=== PATIENT | female | born 1970 | race Caucasian/White ===

== ENCOUNTER 2017-05-18 17:05 | Emergency (ER) | payer BC ==
[2017-05-18 17:48] VITALS: BP 106/59
--- NOTE | 2017-05-18 17:59 | EDM.PDOC ---
ED HPI GENERAL MEDICAL PROBLEM - General Chief Complaint: Skin Complaint Stated Complaint: R NIPPLE PAIN Time Seen by Provider: 05/18/17 17:51 Source of Information: Reports: Patient History Limitations: Reports: No Limitations - History of Present Illness INITIAL COMMENTS - FREE TEXT/NARRATIVE: HISTORY AND PHYSICAL: []46-year-old female presenting with breast pain History of Present Illness: []Patient was seen in the walk-in clinic and treated as mastitis given Zithromax and tramadol Continues to have increased pain Does not want to take tramadol makes her feel "drunk" Patient states that her aunt had breast cancer at 66 years of age had undergone 3 rounds of chemotherapy and then stopped any treatments Review of Systems: As per history of present illness and below otherwise all systems reviewed and negative. Past medical history: As per history of present illness and as reviewed below otherwise noncontributory. Surgical history: As per history of present illness and as reviewed below otherwise noncontributory. Social history: No reported history of drug or alcohol abuse. Family history: As per history of present illness and as reviewed below otherwise noncontributory. Physical exam: Alert and oriented female with good affect she is answering questions in full sentences & no shortness breath is noted HEENT: Atraumatic, normocehpalic, pupils reactive, negative for conjunctival pallor or scleral icterus, mucous membranes moist, throat clear, neck supple, nontender, trachea midline. Lungs: Clear to auscultation, breath sounds equal bilaterally, chest non tender. Heart: S1S2, regular, negative for clicks, rubs, or JVD. Right breast exquisitely tender erythematous there is mild to take to the lateral portion of her breast at about 8 o'clock position right at the areaolar Abdomen: Soft, nondistended, nontender. Negative for masses or hepatossplenmegaly. Negative for costovertebral tenderness. Pelvis: Stable nontender. Genitourinary: Deferred. Rectal: Deferred Extremities: Atraumatic, negative for cords or calf pain. Neurovascular unremarkable. Neuro: Awake, alert, oriented. Cranial nerves II through XII unremarkable. Cerebellum unremarkable. Motor and sensory unremarkable throughout. Exam nonfocal. Diagnostics: [] Therapeutics: [Rocephin 1 g IM] Impression: [Mastitis] Plan: []Augmentin 875 twice a day 10 days Moist heat twice daily to this area 15 minutes Follow-up in 2 days with your primary care provider You will need a mammogram Definitive disposition and diagnosis as appropriate pending reevaluation and review of above. 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: 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 Musculoskeletal History: Reports: None Neurological History: Reports: None Psychiatric History: Reports: None Endocrine/Metabolic History: Reports: None Hematologic History: Reports: None Immunologic History: Reports: None Oncologic (Cancer) History: Reports: None Dermatologic History: Reports: None - Infectious Disease History Infectious Disease History: Reports: Chicken Pox - Past Surgical History Head Surgeries/Procedures: Reports: None HEENT Surgical History: Reports: None Cardiovascular Surgical History: Reports: None Respiratory Surgical History: Reports: None GI Surgical History: Reports: Cholecystectomy, Other (See Below) Other GI Surgeries/Procedures: Colon tear/repair Female Surgical History: Reports: Tubal Ligation, Other (See Below) Other Female Surgeries/Procedures: IUD placement Endocrine Surgical History: Reports: None Neurological Surgical History: Reports: None Musculoskeletal Surgical History: Reports: None Oncologic Surgical History: Reports: None Dermatological Surgical History: Reports: None Social & Family History - Family History Family Medical History: Noncontributory - Tobacco Use Smoking Status *Q: Current Every Day Smoker Years of Tobacco use: 25 Packs/Tins Daily: 0.5 - Caffeine Use Caffeine Use: Reports: Coffee Other Caffeine Use: 4cups daily - Recreational Drug Use Recreational Drug Use: No ED ROS GENERAL - Review of Systems Review Of Systems: ROS reveals no pertinent complaints other than HPI. ED EXAM, SKIN/RASH Exam: See Below (See dictation) Course - Vital Signs Last Recorded V/S: Last Vital Signs Temp 36.7 C 05/18/17 17:45 Pulse 69 05/18/17 17:45 Resp 18 05/18/17 17:45 BP 106/59 L 05/18/17 17:45 Pulse Ox 98 05/18/17 17:45 Departure - Departure Time of Disposition: 18:02 Disposition: Home, Self-Care 01 Condition: Good Clinical Impression: Mastitis - Discharge Information Prescriptions: Amoxicillin/Potassium Clav [Augmentin 875-125 Tablet] 1 each PO BID #20 tablet Referrals: Melissa Chu NP [Primary Care Provider] -
[2017-05-18] MEDS ORDERED: cefTRIAXone 1 GM in Premix Bag 1 BAG IV ONE (18:12)
[2017-05-18] MEDS ORDERED: cefTRIAXone 1,000 MG VIAL IVPUSH SCH (18:15)
== END 2017-05-18 18:55 | disposition home or self-care (01) ==
LOC: MW.ED 17:05
DX: N61.0 Mastitis without abscess (principal); F17.210 Nicotine dependence, cigarettes, uncomplicated; Z79.2 Long term (current) use of antibiotics; Z79.899 Other long term (current) drug therapy; Z88.4 Allergy status to anesthetic agent
CPT/HCPCS: 96365; 99283; J0696

== ENCOUNTER 2017-06-27 10:09 | Day surgery (SDC) | payer BC ==
[~2017-06-27 10:09] MED LIST: Clindamycin Phosphate in D5W 300 MG in Premix Bag 1 BAG IV ONE; Lactated Ringers 1,000 ML IV SCH; Sodium Chloride 0.9% 10 ML Syringe FLUSH PRN; Sodium Chloride 0.9% 2.5 ML Syringe FLUSH PRN
[2017-06-27] MEDS ORDERED: Ondansetron 4 MG/2 ML SDV ONE (11:09)
[2017-06-27] MEDS ORDERED: Lidocaine 2% 5 ML SDV ONE (11:09)
[2017-06-27] MEDS ORDERED: Propofol 200 MG/20 ML SDV ONE (11:09)
[2017-06-27] MEDS ORDERED: Midazolam 1 MG/ML 2 ML SDV ONE (11:10)
[2017-06-27] MEDS ORDERED: fentaNYL 250 MCG/5 ML SDV ONE (11:10)
--- NOTE | 2017-06-27 11:16 | PCM.PREANE ---
Preanesthetic Assessment - Procedure Proposed Procedure: I and D breast mass/abscess - Anesthesia/Transfusion/Family Hx Anesthesia History: Prior Anesthesia Without Reaction Family History of Anesthesia Reaction: No Transfusion History: No Prior Transfusion(s) Intubation History: Unknown - Review of Systems General: Other (Pin right breast - see HPI) Pulmonary: Other (smoker, had preop dig this AM) Cardiovascular: No Symptoms Gastrointestinal: No Symptoms Neurological: No Symptoms Other: Reports: Anxiety - Physical Assessment NPO Status Date: 06/26/17 NPO Status Time: 23:00 Height: 5 ft 2 in Weight: 158 lb ASA Class: 2 Mental Status: Alert & Oriented x3 Airway Class: Mallampati = 1 Dentition: Reports: Dentures (upper) Thyro-Mental Finger Breadths: 3 Mouth Opening Finger Breadths: 3 ROM/Head Extension: Full Lungs: Clear to Auscultation, Normal Respiratory Effort Cardiovascular: Regular Rate, Regular Rhythm, No Murmurs - Lab Values: Laboratory Last Values Urine HCG, Qual NEGATIVE (NEGATIVE) 06/27/17 10:20 - Allergies Allergies/Adverse Reactions: Allergies Allergy/AdvReac Type Severity Reaction Status Date / Time lidocaine Allergy Hypotension Verified 06/25/17 09:49 - Blood Blood Available: No Product(s) Available: None - Anesthesia Plan Pre-Op Medication Ordered: None - Acknowledgements Anesthesia Type Planned: General Anesthesia Pt an Appropriate Candidate for the Planned Anesthesia: Yes Alternatives and Risks of Anesthesia Discussed w Pt/Guardian: Yes Pt/Guardian Understands and Agrees with Anesthesia Plan: Yes PreAnesthesia Questionnaire HEENT History: Reports: Other (See Below) Other HEENT History: top denture Cardiovascular History: Reports: None Respiratory History: Reports: None Gastrointestinal History: Reports: GERD Genitourinary History: Reports: None 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: 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: Musculoskeletal History: Reports: Other (See Below) Other Musculoskeletal History: occasional back pain Neurological History: Reports: None Psychiatric History: Reports: None Endocrine/Metabolic History: Reports: None Hematologic History: Reports: None Immunologic History: Reports: None Oncologic (Cancer) History: Reports: None Dermatologic History: Reports: None - Infectious Disease History Infectious Disease History: Reports: Chicken Pox - Past Surgical History Head Surgeries/Procedures: Reports: None HEENT Surgical History: Reports: None Cardiovascular Surgical History: Reports: None Respiratory Surgical History: Reports: None GI Surgical History: Reports: Cholecystectomy, Other (See Below) Other GI Surgeries/Procedures: rectal tear following child with repair Female Surgical History: Reports: Breast Biopsy, Tubal Ligation, Other (See Below) Other Female Surgeries/Procedures: IUD placement Endocrine Surgical History: Reports: None Neurological Surgical History: Reports: None Musculoskeletal Surgical History: Reports: None Oncologic Surgical History: Reports: None Dermatological Surgical History: Reports: None - SUBSTANCE USE Smoking Status *Q: Current Every Day Smoker Recreational Drug Use History: No - HOME MEDS Home Medications: Home Meds Azithromycin [IMW: Azithromycin] 250 mg PO DAILY 05/18/17 [History] traMADol [Ultram] 50 mg PO DAILY PRN 05/18/17 [History] Ketorolac Tromethamine [IJD: Ketorolac Tromethamine] 10 mg PO ASDIRECTED PRN 07/09 [History] Omeprazole 20 mg PO DAILY 06/25/17 [History] Varenicline [Chantix] 1 tab PO DAILY 06/25/17 [History] - CURRENT (IN HOUSE) MEDS Current Meds: Current Medications Lactated Ringer's (Ringers, Lactated) 1,000 mls @ 125 mls/hr IV ASDIRECTED ZOILA Sodium Chloride (Saline Flush) 10 ml FLUSH ASDIRECTED PRN PRN Reason: Keep Vein Open Sodium Chloride (Saline Flush) 2.5 ml FLUSH ASDIRECTED PRN PRN Reason: Keep Vein Open Discontinued Medications Fentanyl (Sublimaze) Confirm Administered Dose 250 mcg .ROUTE .STK-MED ONE Stop: 06/27/17 11:11 Clindamycin Phosphate 300 mg/ (Premix) 50 mls @ 96.154 mls/hr IV ONETIME ONE Stop: 06/26/17 09:45 Lidocaine (Xylocaine-Mpf 2%) Confirm Administered Dose 5 ml .ROUTE .STK-MED ONE Stop: 06/27/17 11:10 Midazolam HCl (Versed 1 Mg/Ml) Confirm Administered Dose 2 mg .ROUTE .STK-MED ONE Stop: 06/27/17 11:11 Ondansetron HCl (Zofran) Confirm Administered Dose 4 mg .ROUTE .STK-MED ONE Stop: 06/27/17 11:10 Propofol (Diprivan 20 Ml) Confirm Administered Dose 200 mg .ROUTE .STK-MED ONE Stop: 06/27/17 11:10
[2017-06-27] MEDS ORDERED: Bupivacaine 0.5% 30 ML SDV ONE (11:21)
[2017-06-27] MEDS ORDERED: Clindamycin Phosphate in D5W 50 ML IV ONE (11:25)
[2017-06-27] MEDS: fentaNYL 100 MCG/2 ML SDV IVPUSH PRN ×3 (12:41→12:54)
--- NOTE | 2017-06-27 13:05 | PCM.POSTAN ---
POST ANESTHESIA ASSESSMENT - MENTAL STATUS Mental Status: Alert, Oriented - RESPIRATORY Respiratory Status: Respiratory Rate WNL, Airway Patent, O2 Saturation Stable - CARDIOVASCULAR CV Status: Pulse Rate WNL, Blood Pressure Stable - GASTROINTESTINAL GI Status: No Symptoms - PAIN Pain Score: 5 - POST OP HYDRATION Hydration Status: Adequate & Stable - OBSERVATIONS Free Text/Narrative:: no anesthesia problems
[2017-06-27] MEDS ORDERED: Acetaminophen/oxyCODONE 325-5 MG Tab PO PRN (13:14)
--- NOTE | 2017-06-27 13:14 | PCM.OPNOTE ---
- General Post-Op/Procedure Note Date of Surgery/Procedure: 06/27/17 Operative Procedure(s): Incision and drainge right breast abscess Findings: Subareolar abscess that measured ~ 5 x 2 x 1 cm in size. This extended under the areola from the 3-6 o'clock position. At the 9 o'clock position there was a small 0.5 cm abscess that was lanced open. It did not track under the areola. Pre Op Diagnosis: Breast abscess Post-Op Diagnosis: same Anesthesia Technique: General LMA Primary Surgeon: Tamra Altamirano EBL in mLs: 5 Condition: Good
--- NOTE | 2017-06-27 13:27 | PCM48HPAN ---
Post Anesthesia Note - EVALUATION WITHIN 48HRS OF ANESTHETIC Vital Signs in Normal Range: Yes Patient Participated in Evaluation: Yes Respiratory Function Stable: Yes Airway Patent: Yes Cardiovascular Function Stable: Yes Hydration Status Stable: Yes Pain Control Satisfactory: Yes Nausea and Vomiting Control Satisfactory: Yes Mental Status Recovered: Yes Resp Rate: 12 - COMMENTS/OBSERVATIONS Free Text/Narrative:: no anesthesia problems
[2017-06-27 14:16] VITALS: BP 112/75
--- NOTE | 2017-06-27 15:10 | OR ---
SURGEON: KARON EDDY MD DATE OF PROCEDURE: 06/27/2017 PREOPERATIVE DIAGNOSIS: Breast abscess. POSTOPERATIVE DIAGNOSIS: Breast abscess. PROCEDURE PERFORMED: Incision and drainage of breast abscess. ANESTHESIA: General LMA. FLUIDS: See anesthesia record. ESTIMATED BLOOD LOSS: 5 mL. FINDINGS: Subareolar abscess that measured 5 x 2 x 1 cm in size. This extended underneath the areola from the 3 to 6 o'clock position. At the 9 o'clock position, there was a small 0.5 cm abscess that was lanced as well. It did not track under the areola. COMPLICATIONS: None. INDICATIONS: The patient is a 46-year-old female, who presented to my clinic 3 to 4 weeks ago complaining of retroareolar pain. Initial workup revealed [id number] mastitis. The patient was placed on antibiotics and developed a breast abscess. The patient and I discussed the need for an incision and drainage. We discussed the procedure as well as expected perioperative course. We discussed the risks including bleeding, infection, or damage to surrounding structures as well as poor wound healing. The patient verbalized understanding and wishes to proceed. PROCEDURE IN DETAIL: The patient was brought into the OR and placed on the OR table in supine position. A time-out was completed verifying the patient's name, age, date of , allergies, and procedure to be performed. General LMA anesthetic was induced. The patient's right chest and arm were prepped and draped in usual standard fashion. A isaias-areolar incision was made from 3 to 6 o'clock position using a 15 blade. Upon making this incision, a large amount of cloudy yellowish pus was expressed from the wound. This fluid was sent for anaerobic and aerobic cultures as well as Gram stain. A 1 cm piece of the breast skin was excised sharply using a 15 blade. This measured approximately 1 cm x 5 cm x 5 cm in size. Half of this was sent to pathology for tissue culture and half of this was sent for pathologic review. The abscess cavity measured approximately 5 x 2 x 1 cm in size. It extended under the areola. All septations were broken down and the wound cavity was copiously irrigated with normal saline. At the base of the wound, a 5 mm x 5 mm x 5 mm piece of breast tissue was sharply excised and sent to pathology. Hemostasis was achieved with cautery. The patient was also noted to have a 0.5 cm superficial abscess at the 9 o'clock position of the periareolar tissue. A 15 blade was used to incise the top of this abscess. This expressed similar appearing purulent material. A hemostat was used to sharply debride and explore the wound cavity. This was very superficial and it did not seem to track anywhere else. The abscess cavity measured approximately 5 mm x 2 mm x 2 mm. A small Hardy drain was then placed in the large abscess cavity and brought out through the skin on the inferior aspect of the wound cavity. This was secured in place with an 0 Prolene on the skin. The skin overlying the abscess cavity was then loosely closed with interrupted 3-0 Vicryl in the subcuticular space. Quarter- inch Nu Gauze was packed in between these sutures to allow adequate drainage. Quarter-inch Nu Gauze was packed in the 9 o'clock abscess cavity. Fluffs and an abdominal binder were then placed over the wounds. The patient was extubated and taken to the PACU in stable condition. AMINA ANGELO /[id number] MELLISSA
== END 2017-06-27 14:00 | disposition home or self-care (01) ==
LOC: MW.SDS 10:09
PROVIDERS: ATTEND Surgery
DX: N61.1 Abscess of the breast and nipple (principal); K21.9 Gastro-esophageal reflux disease without esophagitis; F32.9 Major depressive disorder, single episode, unspecified; E78.5 Hyperlipidemia, unspecified; Z88.8 Allergy status to other drugs, medicaments and biological substances; Z79.899 Other long term (current) drug therapy; F17.210 Nicotine dependence, cigarettes, uncomplicated; Z79.2 Long term (current) use of antibiotics
CPT/HCPCS: 10061; 81025; 87070; 87075; 87205; A9270; J2250; J2405; J3010; J7120; 00400; 88305; J2704

== ENCOUNTER 2017-07-15 09:24 | Emergency (ER) | payer BC ==
[2017-07-15] MEDS ORDERED: Sodium Chloride 0.9% 2.5 ML Syringe FLUSH PRN (09:41)
[2017-07-15] MEDS ORDERED: Sodium Chloride 0.9% 10 ML Syringe FLUSH PRN (09:41)
[2017-07-15] MEDS ORDERED: Ketorolac 30 MG/ML SDV IVPUSH ONE (09:42)
--- NOTE | 2017-07-15 09:46 | EDM.PDOC ---
ED HPI GENERAL MEDICAL PROBLEM - General Chief Complaint: General Stated Complaint: SWELLING AND REDNESS AT SURGERY SITE Time Seen by Provider: 07/15/17 09:40 - History of Present Illness INITIAL COMMENTS - FREE TEXT/NARRATIVE: HISTORY AND PHYSICAL: History of present illness: The patient is a 46-year-old female with a history of a breast abscess was incised and drained on June [address] Altamirano here at our hospital after evaluation at an outside hospital. The patient did well postoperatively and presents today after seeing that yesterday she noticed increasing redness and hardened skin and tissue with pain at the right breast again. SHe denies any trauma in the area and has had no systemic complaints of fever chills chest pain shortness of breath nausea or vomiting. The patient says that she noticed some drainage from the area as well and she has almost completed the stop smoking as per Dr. Altamirano's request. The patient was on clindamycin in the past and had a rash with that and then was switched to doxycycline which then proceeded to perform the abscess which was drained. She had seen her provider in the clinic for follow-up and contact the clinic today and was sent here for evaluation. Patient says the area is very hard and "knot-like feeling". And it is exquisite painful and she has not taken anything for the pain nor does she have any pain pills. The remainder the breast is nontender and the contralateral left breast is without tenderness or pain. She has no other complaints of pain elsewhere. Review of systems: As per history of present illness and below otherwise all systems reviewed and negative. Past medical history: As per history of present illness and as reviewed below otherwise noncontributory. Surgical history: As per history of present illness and as reviewed below otherwise noncontributory. Social history: No reported history of drug or alcohol abuse. Family history: As per history of present illness and as reviewed below otherwise noncontributory. Physical exam: General: Well-developed well-nourished female who is nontoxic and vital signs are noted by me HEENT: Atraumatic, normocephalic, negative for conjunctival pallor or scleral icterus, mucous membranes moist, throat clear, neck supple, nontender, trachea midline. Lungs: Clear to auscultation, breath sounds equal bilaterally, chest nontender. Breast: At the right breast there is a 9 x 10 area of demarcated erythema and induration appreciated that originates just to the left of the areola and extends medially. This area is not fluctuant and it is very indurated and tender to palpation. There is a scab-like area without any gross drainage seen just to the left of the areola at the 3 to 4 o'clock position. The remainder the breast is nontender and there is no axillary adenopathy or supraclavicular adenopathy appreciated. The chest wall is nontender and there is no crepitus. Heart: S1S2, regular rate and rhythm no overt murmurs Abdomen: Soft, nondistended, nontender. NABS Pelvis: Deferred Genitourinary: Deferred. Rectal: Deferred. Extremities: Atraumatic, negative for cords or calf pain. Neurovascular unremarkable. Neuro: Awake, alert, oriented. Cranial nerves II through XII unremarkable. Cerebellum unremarkable. Motor and sensory unremarkable throughout. Exam nonfocal. Diagnostics: CBC breast soft tissue ultrasound Therapeutics: Toradol Invanz 0938: Dr. Altamirano was aware that this patient was coming to the ER and saw the patient with me on arrival. She will do a formal consult and she is directing the patient's care at this time 1116: Dr. Altamirano is here in the ED and as reviewed the ultrasound report. She would like the patient to go home on doxycycline 100 mg twice a day and she wants to see the patient in her clinic on Friday. She will prefer tramadol for pain management. Impression: Recurrent right breast cellulitis/infection Definitive disposition and diagnosis as appropriate pending reevaluation and review of above. Right Breast Pain Score (Numeric/FACES): 6 - Related Data Allergies Allergy/AdvReac Type Severity Reaction Status Date / Time clindamycin Allergy Blisters Verified 07/15/17 09:42 lidocaine Allergy Hypotension Verified 06/25/17 09:49 Home Meds: Home Meds Omeprazole 20 mg PO DAILY 06/25/17 [History] diphenhydrAMINE HCl [Benadryl Allergy] 25 mg PO ASDIRECTED PRN 07/15/17 [History ] Past Medical History HEENT History: Reports: Other (See Below) Other HEENT History: top denture Cardiovascular History: Reports: None Respiratory History: Reports: None Gastrointestinal History: Reports: GERD Genitourinary History: Reports: 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: Musculoskeletal History: Reports: Other (See Below) Other Musculoskeletal History: occasional back pain Neurological History: Reports: None Psychiatric History: Reports: None Endocrine/Metabolic History: Reports: None Hematologic History: Reports: None Immunologic History: Reports: None Oncologic (Cancer) History: Reports: None Dermatologic History: Reports: None - Infectious Disease History Infectious Disease History: Reports: Chicken Pox - Past Surgical History Head Surgeries/Procedures: Reports: None HEENT Surgical History: Reports: None Cardiovascular Surgical History: Reports: None Respiratory Surgical History: Reports: None GI Surgical History: Reports: Cholecystectomy, Other (See Below) Other GI Surgeries/Procedures: rectal tear following child with repair Female Surgical History: Reports: Breast Biopsy, Tubal Ligation, Other (See Below) Other Female Surgeries/Procedures: IUD placement Endocrine Surgical History: Reports: None Neurological Surgical History: Reports: None Musculoskeletal Surgical History: Reports: None Oncologic Surgical History: Reports: None Dermatological Surgical History: Reports: None Social & Family History - Family History Family Medical History: Noncontributory - Tobacco Use Smoking Status *Q: Current Every Day Smoker Years of Tobacco use: 25 Packs/Tins Daily: 0.5 - Caffeine Use Caffeine Use: Reports: Coffee Other Caffeine Use: 4cups daily - Recreational Drug Use Recreational Drug Use: No ED ROS GENERAL - Review of Systems Review Of Systems: ROS reveals no pertinent complaints other than HPI. ED EXAM, GENERAL - Physical Exam Exam: See Below (See dictation) Course - Vital Signs Last Recorded V/S: Last Vital Signs Temp 37.2 C 07/15/17 10:31 Pulse 67 07/15/17 10:31 Resp 16 07/15/17 10:31 BP 110/71 07/15/17 10:31 Pulse Ox 100 07/15/17 10:31 - Orders/Labs/Meds Orders: Active Orders 24 hr Category Date Time Status Notify Provider Consults [RC] ASDIRECTED Care 07/15/17 09:47 Active Consult to Physician [CONS] Stat Cons 07/15/17 09:46 Active Sodium Chloride 0.9% [Saline Flush] Med 07/15/17 09:41 Active 10 ml FLUSH ASDIRECTED PRN Sodium Chloride 0.9% [Saline Flush] Med 07/15/17 09:41 Active 2.5 ml FLUSH ASDIRECTED PRN Saline Lock Insert [OM.PC] Stat Ot 07/15/17 09:40 Ordered Medication Orders Sodium Chloride (Saline Flush) 10 ml FLUSH ASDIRECTED PRN PRN Reason: Keep Vein Open Sodium Chloride (Saline Flush) 2.5 ml FLUSH ASDIRECTED PRN PRN Reason: Keep Vein Open Labs: Laboratory Tests 07/15/17 Range/Units 09:53 WBC 9.51 (4.0-11.0) K/uL RBC 4.77 (4.30-5.90) M/uL Hgb 14.7 (12.0-16.0) g/dL Hct 43.5 (36.0-46.0) % MCV 91.2 (80.0-98.0) fL MCH 30.8 (27.0-32.0) pg MCHC 33.8 (31.0-37.0) g/dL RDW Std Deviation 44.8 (28.0-62.0) fl RDW Coeff of Anabella 13 (11.0-15.0) % Plt Count 335 (150-400) K/uL MPV 10.00 (7.40-12.00) fL Neut % (Auto) 59.7 (48.0-80.0) % Lymph % (Auto) 32.0 (16.0-40.0) % Haralson % (Auto) 4.1 (0.0-15.0) % Eos % (Auto) 3.0 (0.0-7.0) % Baso % (Auto) 1.2 (0.0-1.5) % Neut # (Auto) 5.7 (1.4-5.7) K/uL Lymph # (Auto) 3.0 H (0.6-2.4) K/uL Haralson # (Auto) 0.4 (0.0-0.8) K/uL Eos # (Auto) 0.3 (0.0-0.7) K/uL Baso # (Auto) 0.1 (0.0-0.1) K/uL Nucleated RBC % 0.0 /100WBC Nucleated RBCs # 0 K/uL Meds: Medications Generic Name Dose Route Start Last Admin Trade Name Freq PRN Reason Stop Dose Admin Sodium Chloride 10 ml 07/15/17 09:41 Saline Flush FLUSH ASDIRECTED PRN Keep Vein Open Sodium Chloride 2.5 ml 07/15/17 09:41 Saline Flush FLUSH ASDIRECTED PRN Keep Vein Open Discontinued Medications Generic Name Dose Route Start Last Admin Trade Name Chaim PRN Reason Stop Dose Admin Vancomycin HCl 1 gm/ Sodium 250 mls @ 250 mls/hr 07/15/17 09:42 07/15/17 10: 15 Chloride IV 07/15/17 10:41 Not Given ONETIME ONE Ertapenem 1 gm/ Sodium 50 mls @ 100 mls/hr 07/15/17 09:53 07/15/17 10:05 Chloride IV 07/15/17 10:22 100 mls/hr ONETIME ONE Administration Ketorolac Tromethamine 30 mg 07/15/17 09:42 07/15/17 09:53 Toradol IVPUSH 07/15/17 09:43 30 mg ONETIME ONE Administration Departure - Departure Time of Disposition: 11:20 Disposition: Home, Self-Care 01 Condition: Good Clinical Impression: Cellulitis of breast - Discharge Information Referrals: Melissa Chu NP [Primary Care Provider] - Forms: ED Department Discharge Additional Instructions: The following information is given to patients seen in the emergency department who are being discharged to home. This information is to outline your options for follow-up care. We provide all patients seen in our emergency department with a follow-up referral. The need for follow-up, as well as the timing and circumstances, are variable depending upon the specifics of your emergency department visit. If you don't have a primary care physician on staff, we will provide you with a referral. We always advise you to contact your personal physician following an emergency department visit to inform them of the circumstance of the visit and for follow-up with them and/or the need for any referrals to a consulting specialist. The emergency department will also refer you to a specialist when appropriate. This referral assures that you have the opportunity for followup care with a specialist. All of these measure are taken in an effort to provide you with optimal care, which includes your followup. Under all circumstances we always encourage you to contact your private physician who remains a resource for coordinating your care. When calling for followup care, please make the office aware that this follow-up is from your recent emergency room visit. If for any reason you are refused follow-up, please contact the [facility] emergency department at and ask to speak to the emergency department charge nurse. [facility] [address] [place] [phone] Please call and schedule a follow-up appointment with Dr. Altamirano for Friday as she discussed with you. Please take all medications as prescribed and return to ER as needed and as discussed - My Orders Last 24 Hours: My Active Orders 07/15/17 09:40 Saline Lock Insert [OM.PC] Stat 07/15/17 09:41 Sodium Chloride 0.9% [Saline Flush] 10 ml FLUSH ASDIRECTED PRN Sodium Chloride 0.9% [Saline Flush] 2.5 ml FLUSH ASDIRECTED PRN 07/15/17 09:46 Consult to Physician [CONS] Stat 07/15/17 09:47 Notify Provider Consults [RC] ASDIRECTED - Assessment/Plan Last 24 Hours: My Active Orders 07/15/17 09:40 Saline Lock Insert [OM.PC] Stat 07/15/17 09:41 Sodium Chloride 0.9% [Saline Flush] 10 ml FLUSH ASDIRECTED PRN Sodium Chloride 0.9% [Saline Flush] 2.5 ml FLUSH ASDIRECTED PRN 07/15/17 09:46 Consult to Physician [CONS] Stat 07/15/17 09:47 Notify Provider Consults [RC] ASDIRECTED
[2017-07-15] MEDS ORDERED: Ertapenem 1 GM in Sodium Chloride 0.9% 50 ML IV ONE (09:53)
--- NOTE | 2017-07-15 11:13 | US ---
EXAMINATION: Ultrasound guided right breast HISTORY: Evaluate for abscess COMPARISON: 06/20/2017 TECHNIQUE: Grayscale and color Doppler imaging obtained. FINDINGS: Within the region of concern at the 3:00 position no residual obtained as fluid collection identified. There is mild to moderate overlying skin thickening. No increased color Doppler flow. IMPRESSION: 1. Residual Skin thickening at the 3:00 position without an underlying fluid collection or abscess.
[2017-07-15 11:41] VITALS: BP 107/74
--- NOTE | 2017-07-15 12:24 | PCM.SN ---
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 She has been doing well postoperatively until the last 24 hours. She develop recurrence of pain swelling tenderness and erythema at the 3 o'clock position. She presented the emergency room today. An ultrasound was performed that showed no evidence of a fluid collection however she was complaining of drainage at home. She has thickening underneath her areola and erythema around the breast. This is most likely a recurrence of her mastitis. She was given a dose of Invanz and IV fluids. She'll be sent home on doxycycline and follow-up in clinic on Friday. We'll discuss the possibility of a subareolar duct excision to improve her symptoms.
== END 2017-07-15 11:38 | disposition home or self-care (01) ==
LOC: MW.ED 09:24
DX: N61.0 Mastitis without abscess (principal); Z88.8 Allergy status to other drugs, medicaments and biological substances; Z88.1 Allergy status to other antibiotic agents; Z79.899 Other long term (current) drug therapy; F17.210 Nicotine dependence, cigarettes, uncomplicated
CPT/HCPCS: 36415; 76642; 85025; 96365; 96375; 99284; J1335; J1885; J7050; 99283

== ENCOUNTER 2018-12-23 11:28 | Emergency (ER) | payer BC ==
[2018-12-23 11:51] VITALS: BP 118/69; PULSE 75
--- NOTE | 2018-12-23 12:00 | EDM.PDOC ---
ED HPI GENERAL MEDICAL PROBLEM - General Chief Complaint: Upper Extremity Injury/Pain Stated Complaint: LT ARM INJURY Time Seen by Provider: 12/23/18 11:32 Source of Information: Reports: Patient History Limitations: Reports: No Limitations - History of Present Illness INITIAL COMMENTS - FREE TEXT/NARRATIVE: History of present illness: []Patient complains of left elbow pain after moving a TV and 4 gallons of water yesterday. She denies any specific trauma but today her elbow feels worse. She denies any numbness or tingling. Review of systems: As per history of present illness and below otherwise all systems reviewed and negative. Past medical history: As per history of present illness and as reviewed below otherwise noncontributory. Surgical history: As per history of present illness and as reviewed below otherwise noncontributory. Social history: No reported history of drug or alcohol abuse. Family history: As per history of present illness and as reviewed below otherwise noncontributory. Physical exam: General: Well developed, well nourished in NAD HEENT: Atraumatic, normocephalic, pupils reactive, negative for conjunctival pallor or scleral icterus, mucous membranes moist, throat clear, neck supple, nontender, trachea midline. Lungs: Clear to auscultation, breath sounds equal bilaterally, chest nontender. Heart: S1S2, regular, negative for clicks, rubs, or JVD. Abdomen: NABS, Soft, nondistended, nontender. Negative for masses or hepatosplenomegaly. Negative for costovertebral tenderness. Pelvis: Stable nontender. Genitourinary: Deferred. Rectal: Deferred. Extremities: Atraumatic, tender over olecranon bursa there is minimal swelling she has full range of motion NVI negative for cords or calf pain. Neurovascular unremarkable. Neuro: Awake, alert, oriented. Cranial nerves II through XII unremarkable. Cerebellum unremarkable. Motor and sensory unremarkable throughout. Exam nonfocal. Skin:warm and dry Diagnostics: None Therapeutics: Sling ED Course: Stable Impression: Olecranon bursitis Prescriptions: Diclofenac. Plan: Take meds as directed, follow up with your primary care physician, return to ER if symptoms worsen or change Definitive disposition and diagnosis as appropriate pending reevaluation and review of above. left elbow Pain Score (Numeric/FACES): 2 - Related Data Allergies Allergy/AdvReac Type Severity Reaction Status Date / Time clindamycin Allergy Blisters Verified 12/23/18 11:51 lidocaine Allergy Hypotension Verified 12/23/18 11:51 Home Meds: Home Meds Diclofenac Sodium [Voltaren] 75 mg PO BIDMEALS PRN #20 tab.cr 12/23/18 [Rx] Past Medical History HEENT History: Reports: Other (See Below) Other HEENT History: top denture Cardiovascular History: Reports: None Respiratory History: Reports: None Gastrointestinal History: Reports: GERD, Other (See Below) Other Gastrointestinal History: stomach ulcer Genitourinary History: Reports: None 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: Musculoskeletal History: Reports: Other (See Below) Other Musculoskeletal History: occasional back pain Neurological History: Reports: None Psychiatric History: Reports: None Endocrine/Metabolic History: Reports: None Hematologic History: Reports: None Immunologic History: Reports: None Oncologic (Cancer) History: Reports: None Dermatologic History: Reports: None - Infectious Disease History Infectious Disease History: Reports: Chicken Pox - Past Surgical History Head Surgeries/Procedures: Reports: None HEENT Surgical History: Reports: None Cardiovascular Surgical History: Reports: None Respiratory Surgical History: Reports: None GI Surgical History: Reports: Cholecystectomy, Other (See Below) Other GI Surgeries/Procedures: rectal tear following child with repair Female Surgical History: Reports: Breast Biopsy, Tubal Ligation, Other (See Below) Other Female Surgeries/Procedures: IUD placement Endocrine Surgical History: Reports: None Neurological Surgical History: Reports: None Musculoskeletal Surgical History: Reports: None Oncologic Surgical History: Reports: Biopsy of Breast Other Oncologic Surgeries/Procedures: polyp removed from breast Dermatological Surgical History: Reports: None Social & Family History - Family History Family Medical History: Noncontributory Oncologic: Reports: Leukemia, Lung - Tobacco Use Smoking Status *Q: Current Every Day Smoker Years of Tobacco use: 25 Packs/Tins Daily: 0.5 - Caffeine Use Caffeine Use: Reports: Coffee Other Caffeine Use: 4cups daily - Recreational Drug Use Recreational Drug Use: No Review of Systems - Review of Systems Review Of Systems: See Below ED EXAM, GENERAL - Physical Exam Exam: See Below Course - Vital Signs Last Recorded V/S: Last Vital Signs Temp 97.2 F 12/23/18 11:49 Pulse 75 12/23/18 11:49 Resp 16 12/23/18 11:49 BP 118/69 12/23/18 11:49 Pulse Ox 95 12/23/18 11:49 - Orders/Labs/Meds Orders: Active Orders 24 hr Category Date Time Status Splinting [RC] ASDIRECTED Care 12/23/18 11:47 Active Departure - Departure Time of Disposition: 11:59 Disposition: Home, Self-Care 01 Condition: Good Clinical Impression: Olecranon bursitis Qualifiers: Laterality: left Qualified Code(s): M70.22 - Olecranon bursitis, left elbow - Discharge Information *PRESCRIPTION DRUG MONITORING PROGRAM REVIEWED*: No *COPY OF PRESCRIPTION DRUG MONITORING REPORT IN PATIENT TREASURE: No Prescriptions: Diclofenac Sodium [Voltaren] 75 mg PO BIDMEALS PRN #20 tab.cr PRN Reason: Pain Instructions: Elbow Bursitis, [id number] Referrals: PCP,Unknown [Primary Care Provider] - Forms: ED Department Discharge Additional Instructions: The following information is given to patients seen in the emergency department who are being discharged to home. This information is to outline your options for follow-up care. We provide all patients seen in our emergency department with a follow-up referral. The need for follow-up, as well as the timing and circumstances, are variable depending upon the specifics of your emergency department visit. If you don't have a primary care physician on staff, we will provide you with a referral. We always advise you to contact your personal physician following an emergency department visit to inform them of the circumstance of the visit and for follow-up with them and/or the need for any referrals to a consulting specialist. The emergency department will also refer you to a specialist when appropriate. This referral assures that you have the opportunity for follow-up care with a specialist. All of these measure are taken in an effort to provide you with optimal care, which includes your follow-up. Under all circumstances we always encourage you to contact your private physician who remains a resource for coordinating your care. When calling for follow-up care, please make the office aware that this follow-up is from your recent emergency room visit. If for any reason you are refused follow-up, please contact the [facility] Emergency Department at and asked to speak to the emergency department charge nurse. Take meds as directed, follow up with your primary care physician, return to ER if symptoms worsen or change. [facility] [address] [place] [phone] - My Orders Last 24 Hours: My Active Orders 12/23/18 11:47 Splinting [RC] ASDIRECTED - Assessment/Plan Last 24 Hours: My Active Orders 12/23/18 11:47 Splinting [RC] ASDIRECTED
== END 2018-12-23 12:40 | disposition home or self-care (01) ==
LOC: MW.ED 11:28
DX: M70.22 Olecranon bursitis, left elbow (principal); F17.210 Nicotine dependence, cigarettes, uncomplicated; Z88.8 Allergy status to other drugs, medicaments and biological substances
CPT/HCPCS: 99283

== ENCOUNTER 2019-10-29 12:04 | Emergency (ER) | payer BC ==
[2019-10-29] MEDS ORDERED: Ketorolac 60 MG/2 ML SDV IM ONE (12:28)
[2019-10-29] MEDS ORDERED: Orphenadrine 60 MG/2 ML Inj IM ONE (12:28)
--- NOTE | 2019-10-29 12:53 | EDM.PDOC ---
ED HPI GENERAL MEDICAL PROBLEM - General Chief Complaint: Back Pain or Injury Stated Complaint: BACK PAIN Time Seen by Provider: 10/29/19 12:05 Source of Information: Reports: Patient History Limitations: Reports: No Limitations - History of Present Illness INITIAL COMMENTS - FREE TEXT/NARRATIVE: HISTORY AND PHYSICAL: History of present illness: Patient is a 48-year-old female who presents to the emergency room with complaints of left sided upper lumbar/thoracic back pain. She states she was reaching for something above her head and reached across her body when she felt some muscle spasm/tension in the left mid back. She denies any injury, trauma or falls. Denies any numbness, tingling, saddle paresthesia of the distal extremities. She has tried Tylenol [id number] without relief. Review of systems: As per history of present illness and below otherwise all systems reviewed and negative. Past medical history: As per history of present illness and as reviewed below otherwise noncontributory. Surgical history: As per history of present illness and as reviewed below otherwise noncontributory. Social history: See social history for further information Family history: As per history of present illness and as reviewed below otherwise noncontributory. Physical exam: General: Well-developed and well-nourished 48-year-old female. Alert and oriented. Nontoxic-appearing and in no acute distress. HEENT: Atraumatic, normocephalic, pupils equal and reactive bilaterally, negative for conjunctival pallor or scleral icterus, mucous membranes moist, TMs normal bilaterally, throat clear, neck supple, nontender, trachea midline. No drooling or trismus noted. No meningeal signs. No hot potato voice noted. Lungs: Clear to auscultation, breath sounds equal bilaterally, chest nontender. Heart: S1S2, regular rate and rhythm without overt murmur Abdomen: Soft, nondistended, nontender. C-spine/Back: No pinpoint vertebral tenderness upon palpation. No crepitus, step-offs or obvious deformities. Patient is ambulatory into the emergency room without difficulty or deficit. Able to rock back on heels and walk on toes. Denies any urinary or fecal incontinence. Denies any numbness, tingling or saddle paresthesia. No concerns of serious infection, fracture or cord compression, or cauda equina syndrome. Deep tendon reflexes brisk bilaterally. Skin: Intact, warm, dry. No lesions or rashes noted. Extremities: Atraumatic, moves all extremities per self without difficulty or deficits, negative for cords or calf pain. Neurovascular unremarkable. Neuro: Awake, alert, oriented. Cranial nerves II through XII unremarkable. Cerebellum unremarkable. Motor and sensory unremarkable throughout. Exam nonfocal. Notes: We did discuss doing an x-ray. She declines regardless of education. She is neurologically intact. Shes' stating that her lumbar spine/thoracic spine does not hurt and she did not have any discomfort upon my evaluation. She states the pain is in the muscle and is aggravated with any movement of the upper back. Initially gave her some Toradol and Flexeril which she states helped some but was still in moderate pain. She does have a ride to home, will give her a tablet of Ashford here. Patient did find relief with medication. Her vital signs remained stable. We discussed the need for follow-up with primary care. Medication and supportive care measures were reviewed and discussed. Voices understanding and is agreeable to plan of care. Denies any further questions or concerns at this time. Diagnostics: Patient declines Therapeutics: Toradol, Norflex, Ashford Prescription: Diclofenac, Flexeril Impression: Muscle strain, back Plan: 1. The medication you received today does cause drowsiness, so do not drive for the remaining day 2. When resting please lay on a flat firm surface. Limit your immobility to prevent muscle stiffness. Get up to ambulate/move around/gentle stretching multiple times throughout the day. May alternate heat and ice to the painful areas 3. Tylenol as needed for back pain. Otherwise take the prescribed Flexeril and diclofenac as directed. Diclofenac is an anti-inflammatory so do not take any additional NSAIDs with this medication, such as ibuprofen or Aleve. Flexeril as a muscle relaxant, this medication may cause drowsiness a do not take it will driving her needing to be functioning outside of the house. 4. Please follow-up with your primary care provider as we discussed. If your symptoms should worsen, new symptoms develop or any of the signs and symptoms we discussed should arise please return to the emergency room or call 911 (if needed). Definitive disposition and diagnosis as appropriate pending reevaluation and review of above. Back Pain Score (Numeric/FACES): 7 - Related Data Allergies Allergy/AdvReac Type Severity Reaction Status Date / Time clindamycin Allergy Blisters Verified 10/29/19 12:14 lidocaine Allergy Hypotension Verified 10/29/19 12:14 Home Meds: Home Meds Cyclobenzaprine [Flexeril] 10 mg PO TID PRN #21 tab 10/29/19 [Rx] Diclofenac Sodium 50 mg PO BID PRN #20 tablet. 10/29/19 [Rx] Past Medical History HEENT History: Reports: Other (See Below) Other HEENT History: top denture Cardiovascular History: Reports: None Respiratory History: Reports: None Gastrointestinal History: Reports: GERD, Other (See Below) Other Gastrointestinal History: stomach ulcer Genitourinary History: Reports: None [employer] History: Reports: Musculoskeletal History: Reports: Other (See Below) Other Musculoskeletal History: occasional back pain Neurological History: Reports: None Psychiatric History: Reports: None Endocrine/Metabolic History: Reports: None Hematologic History: Reports: None Immunologic History: Reports: None Oncologic (Cancer) History: Reports: None Dermatologic History: Reports: None - Infectious Disease History Infectious Disease History: Reports: None - Past Surgical History Head Surgeries/Procedures: Reports: None HEENT Surgical History: Reports: None Cardiovascular Surgical History: Reports: None Respiratory Surgical History: Reports: None GI Surgical History: Reports: Cholecystectomy, Other (See Below) Other GI Surgeries/Procedures: rectal tear following child with repair Female Surgical History: Reports: Breast Biopsy, Tubal Ligation, Other (See Below) Other Female Surgeries/Procedures: IUD placement Endocrine Surgical History: Reports: None Neurological Surgical History: Reports: None Musculoskeletal Surgical History: Reports: None Oncologic Surgical History: Reports: Biopsy of Breast Other Oncologic Surgeries/Procedures: polyp removed from breast Dermatological Surgical History: Reports: None Social & Family History - Family History Family Medical History: Noncontributory Oncologic: Reports: Leukemia, Lung - Tobacco Use Smoking Status *Q: Current Every Day Smoker Years of Tobacco use: 25 Packs/Tins Daily: 0.1 - Caffeine Use Caffeine Use: Reports: Coffee Other Caffeine Use: 4cups daily - Recreational Drug Use Recreational Drug Use: No ED ROS GENERAL - Review of Systems Review Of Systems: Comprehensive ROS is negative, except as noted in HPI. ED EXAM,LOWER BACK PAIN/INJURY - Physical Exam Exam: See Below (See dictation) Course - Vital Signs Last Recorded V/S: Last Vital Signs Temp 98.4 F 10/29/19 12:14 Pulse 85 10/29/19 12:14 Resp 16 10/29/19 12:14 BP 119/80 10/29/19 12:14 Pulse Ox 98 10/29/19 12:14 - Orders/Labs/Meds Meds: Medications Discontinued Medications Generic Name Dose Route Start Last Admin Trade Name Freq PRN Reason Stop Dose Admin Hydrocodone Bitart/Acetaminophen 1 tab 10/29/19 13:07 10/29/19 13:31 Ashford 325-5 Mg PO 10/29/19 13:08 1 tab ONETIME ONE Administration Ketorolac Tromethamine 60 mg 10/29/19 12:28 10/29/19 12:41 Toradol IM 10/29/19 12:29 60 mg ONETIME ONE Administration Orphenadrine Citrate 60 mg 10/29/19 12:28 10/29/19 12:42 Norflex IM 10/29/19 12:29 60 mg ONETIME ONE Administration Departure - Departure Time of Disposition: 12:53 Disposition: Home, Self-Care 01 Clinical Impression: Muscle strain of left upper back Qualifiers: Encounter type: initial encounter Qualified Code(s): S29.012A - Strain of muscle and tendon of back wall of thorax, initial encounter - Discharge Information Prescriptions: Diclofenac Sodium 50 mg PO BID PRN #20 tablet. PRN Reason: Pain Cyclobenzaprine [Flexeril] 10 mg PO TID PRN #21 tab PRN Reason: Muscle Spasm Instructions: Muscle Strain, [id number] Referrals: Alida Ashofrd, [employer] [Primary Care Provider] - Forms: ED Department Discharge Additional Instructions: The following information is given to patients seen in the emergency department who are being discharged to home. This information is to outline your options for follow-up care. We provide all patients seen in our emergency department with a follow-up referral. The need for follow-up, as well as the timing and circumstances, are variable depending upon the specifics of your emergency department visit. If you don't have a primary care physician on staff, we will provide you with a referral. We always advise you to contact your personal physician following an emergency department visit to inform them of the circumstance of the visit and for follow-up with them and/or the need for any referrals to a consulting specialist. The emergency department will also refer you to a specialist when appropriate. This referral assures that you have the opportunity for follow-up care with a specialist. All of these measure are taken in an effort to provide you with optimal care, which includes your follow-up. Under all circumstances we always encourage you to contact your private physician who remains a resource for coordinating your care. When calling for follow-up care, please make the office aware that this follow-up is from your recent emergency room visit. If for any reason you are refused follow-up, please contact the [facility] Emergency Department at and asked to speak to the emergency department charge nurse. [facility] [address] [place] [id number] [facility] [address] [place] [id number] Thank you for choosing the [facility] emergency department in [place] for your medical needs today. It was a pleasure caring for you. Today you were seen in the emergency department for back pain. 1. The medication you received today does cause drowsiness, so do not drive for the remaining day 2. When resting please lay on a flat firm surface. Limit your immobility to prevent muscle stiffness. Get up to ambulate/move around/gentle stretching multiple times throughout the day. May alternate heat and ice to the painful areas 3. Tylenol as needed for back pain. Otherwise take the prescribed Flexeril and diclofenac as directed. Diclofenac is an anti-inflammatory so do not take any additional NSAIDs with this medication, such as ibuprofen or Aleve. Flexeril as a muscle relaxant, this medication may cause drowsiness a do not take it will driving her needing to be functioning outside of the house. 4. Please follow-up with your primary care provider as we discussed. If your symptoms should worsen, new symptoms develop or any of the signs and symptoms we discussed should arise please return to the emergency room or call 911 (if needed). Sepsis Event Note (ED) - Evaluation Sepsis Screening Result: No Definite Risk - Focused Exam Vital Signs: Vital Signs Temp Pulse Resp BP Pulse Ox 10/29/19 12:14 98.4 F 85 16 119/80 98
[2019-10-29] MEDS ORDERED: Acetaminophen/HYDROcodone 325-5 MG Tab PO ONE (13:07)
[2019-10-30 01:31] VITALS: BP 92/51; PULSE 63
== END 2019-10-29 13:53 | disposition home or self-care (01) ==
LOC: MW.ED 12:04
DX: S29.012A Strain of muscle and tendon of back wall of thorax, initial encounter (principal); F17.210 Nicotine dependence, cigarettes, uncomplicated; Z88.1 Allergy status to other antibiotic agents; Z88.4 Allergy status to anesthetic agent; X58.XXXA Exposure to other specified factors, initial encounter
CPT/HCPCS: 96372; 99283; A9270; J1885; J2360

== ENCOUNTER 2022-08-26 18:40 | Emergency (ER) | payer BC ==
[2022-08-26 19:25] VITALS: BP 130/81
[2022-08-26] MEDS ORDERED: Ketorolac 60 MG/2 ML SDV IM ONE (19:42)
[2022-08-26] MEDS ORDERED: Ondansetron 4 MG Tab.DIS PO ONE (19:49)
[2022-08-26] MEDS ORDERED: Sulfamethoxazole/Trimethoprim 800-160 MG Tab PO ONE (19:50)
[2022-08-26 19:56] LABS: BASOPHILS PERCENT AUTO 0.3 % (0.0-1.5); EOSINOPHILS ABSOLUTE AUTO 0.2 K/uL (0.0-0.7); EOSINOPHILS PERCENT AUTO 1.3 % (0.0-7.0); HEMATOCRIT 39.9 % (36.0-46.0); HEMOGLOBIN 13.5 g/dL (12.0-16.0); LYMPHOCYTES ABSOLUTE AUTO 2.4 K/uL (0.6-2.4); LYMPHOCYTES PERCENT AUTO 20.8 % (16.0-40.0); MEAN CORPUSCULAR HGB CONC 33.8 g/dL (31.0-37.0); MEAN CORPUSCULAR VOLUME 91.7 fL (80.0-98.0); MONOCYTES ABSOLUTE AUTO 0.6 K/uL (0.0-0.8); NEUTROPHILS ABSOLUTE AUTO 8.4 K/uL (1.4-5.7); NEUTROPHILS PERCENT AUTO 72.6 % (48.0-80.0); NRBC ABSOLUTE 0 K/uL; PLATELET COUNT,PLT 302 K/uL (150-400); RED BLOOD CELL COUNT 4.35 M/uL (4.30-5.90); WHITE BLOOD CELL COUNT,WBC 11.63 K/uL (4.0-11.0)
[2022-08-26 20:33] LABS: A/G RATIO 1.5 (0.9-1.6); ALBUMIN 4.4 g/dL (3.4-5.0); BILIRUBIN TOTAL 0.5 mg/dL (0.2-1.0); CALCIUM 9.3 mg/dL (8.5-10.1); CARBON DIOXIDE,CO2 27.6 mmol/L (21.0-32.0); CREATININE 0.8 mg/dL (0.6-1.0); EST CRCL DRUG DOSING (CG) 61.1 mL/min; POTASSIUM,K 4.3 mmol/L (3.5-5.1); PROTEIN TOTAL,TP 7.4 g/dL (6.4-8.2)
[2022-08-26] MEDS ORDERED: Cephalexin 500 MG Cap PO ONE (21:20)
[2022-08-26] MEDS ORDERED: traMADol 50 MG Tab PO ONE (21:20)
[2022-08-26 21:40] VITALS: PULSE 81
== END 2022-08-26 21:37 | disposition home or self-care (01) ==
LOC: MW.ED 18:40
DX: N61.0 Mastitis without abscess (principal); Z88.1 Allergy status to other antibiotic agents; Z88.4 Allergy status to anesthetic agent; Z98.890 Other specified postprocedural states
CPT/HCPCS: 36415; 76642; 80053; 85025; 96372; 99284; A9270; J1885; 99283

== ENCOUNTER 2022-08-29 11:56 | Day surgery (SDC) | payer BC ==
[2022-08-29] MEDS ORDERED: oxyCODONE 5 MG Tab PO STA (13:36)
[2022-08-29] MEDS ORDERED: propofoL 50 ML ONE (15:24)
[2022-08-29] MEDS ORDERED: fentaNYL 100 MCG/2 ML SDV ONE (15:27)
[2022-08-29] MEDS ORDERED: Bupivacaine 0.5% 30 ML SDV ONE (15:27)
[2022-08-29] MEDS ORDERED: Lidocaine 2% 5 ML SDV ONE (15:27)
[2022-08-29] MEDS ORDERED: Succinylcholine/Sod PF 100 MG/5 ML SYRINGE IV ONE (15:28)
[2022-08-29] MEDS ORDERED: Dexamethasone 4 MG/ML 5 ML MDV ONE ×2 (16:02→16:05)
[2022-08-29] MEDS ORDERED: Ondansetron 4 MG/2 ML SDV ONE (16:02)
[2022-08-29] MEDS ORDERED: ceFAZolin 2 GM Vial ONE (16:02)
[2022-08-29] MEDS ORDERED: Magnesium Sulfate (4.06 MEQ/ML) 5 GM/10 ML SDV ONE (16:03)
[2022-08-29] MEDS ORDERED: Phenylephrine HCl 0.5 MG/5 ML AMP ONE (16:16)
[2022-08-29] MEDS ORDERED: Ketorolac 30 MG/ML SDV ONE (16:24)
[2022-08-29 20:48] VITALS: BP 105/60; PULSE 70
== END 2022-08-29 20:30 | disposition home or self-care (01) ==
LOC: MW.ED 11:56 → MW.SDS 15:41 → MW.MS 18:06 → MW.SDS 20:30
PROVIDERS: ATTEND Surgery
DX: N61.1 Abscess of the breast and nipple (principal); K21.9 Gastro-esophageal reflux disease without esophagitis; Z88.1 Allergy status to other antibiotic agents; Z88.4 Allergy status to anesthetic agent; Z79.899 Other long term (current) drug therapy; Z98.890 Other specified postprocedural states
CPT/HCPCS: 10060; 87070; 87075; 87205; 99284; A9270; J0131; J0330; J0690; J1100; J1885; J2405; J2704; J3010; J3475; J3490; 00400; 99285; J2370

== ENCOUNTER 2023-01-02 07:23 | Inpatient (IN) | payer BC ==
[2023-01-02] MEDS ORDERED: Morphine 4 MG/ML Syringe IVPUSH ONE (07:50)
[2023-01-02] MEDS ORDERED: Ondansetron 4 MG/2 ML SDV IVPUSH ONE (07:50)
[2023-01-02] MEDS ORDERED: Sodium Chloride 0.9% 1,000 ML IV ONE ×3 (07:50→23:45)
[2023-01-02 08:13] LABS: BASOPHILS ABSOLUTE AUTO 0.09 K/uL (0.00-0.20); BASOPHILS PERCENT AUTO 0.7 % (0.0-1.0); EOSINOPHILS ABSOLUTE AUTO 0.15 K/uL (0.00-0.45); EOSINOPHILS PERCENT AUTO 1.2 % (0.0-6.0); HEMATOCRIT 39.7 % (37.0-47.0); HEMOGLOBIN 13.4 g/dL (12.0-16.0); IMMATURE GRAN ABSOLUTE AUTO 0.04 K/uL (0.00-0.05); IMMATURE GRAN PERCENT AUTO 0.3 % (0.0-0.4); LYMPHOCYTES ABSOLUTE AUTO 2.36 K/uL (1.00-4.80); LYMPHOCYTES PERCENT AUTO 18.5 % (24.0-44.0); MEAN CORPUSCULAR HEMOGLOBIN 29.8 pg (28.0-32.0); MEAN CORPUSCULAR HGB CONC 33.8 g/dL (32.0-36.0); MEAN CORPUSCULAR VOLUME 88.4 fL (83.0-99.0); MEAN PLATELET VOLUME 9.9 fL (9.4-12.3); MONOCYTES ABSOLUTE AUTO 1.09 K/uL (0.00-0.80); MONOCYTES PERCENT AUTO 8.5 % (0.0-8.0); NEUTROPHILS ABSOLUTE AUTO 9.06 K/uL (1.80-7.70); NEUTROPHILS PERCENT AUTO 70.8 % (41.0-71.0); PLATELET COUNT,PLT 320 K/uL (150-400); RED BLOOD CELL COUNT 4.49 M/uL (4.10-5.30); WHITE BLOOD CELL COUNT,WBC 12.79 K/uL (3.9-11.3)
[2023-01-02 08:43] LABS: ALBUMIN 3.7 g/dL (3.4-5.0); BILIRUBIN TOTAL 1.3 mg/dL (0.2-1.0); CALCIUM 9.3 mg/dL (8.5-10.1); CARBON DIOXIDE,CO2 30.3 mmol/L (21.0-32.0); EST CRCL DRUG DOSING (CG) 48.34 mL/min; MAGNESIUM 2.1 mg/dL (1.8-2.4); POTASSIUM,K 4.2 mmol/L (3.5-5.1); PROTEIN TOTAL,TP 7.3 g/dL (6.4-8.2)
[2023-01-02] MEDS ORDERED: Iopamidol 755 MG/ML 500 ML Multipack Bottle IVPUSH ONE (09:01)
[2023-01-02] MEDS ORDERED: Piperacillin/Tazobactam 4.5 GM in Sodium Chloride 0.9% 100 ML IV ONE (09:38)
[2023-01-02] MEDS ORDERED: Ondansetron 4 MG/2 ML SDV IVPUSH PRN (10:27)
[2023-01-02] MEDS ORDERED: Acetaminophen 650 MG in Premix Bag 1 BAG IV PRN (10:44)
[2023-01-02] MEDS: Pantoprazole 40 MG in Sodium Chloride 0.9% 10 ML IVPUSH SCH (11:17)
[2023-01-02] MEDS: Sodium Chloride 0.9% 1,000 ML IV SCH ×2 (11:17→20:36)
[2023-01-02] MEDS: Enoxaparin 40 MG/0.4 ML Syringe SUBCUT SCH (11:18)
[2023-01-02 11:26] LABS: APPEARANCE,URINE CLEAR; BILIRUBIN,URINE NEGATIVE (NEGATIVE); COLOR,URINE YELLOW; GLUCOSE,URINE NEGATIVE (NEGATIVE); KETONES,URINE NEGATIVE (NEGATIVE); LEUKOCYTE ESTERASE,URINE NEGATIVE (NEGATIVE); NITRITE,URINE NEGATIVE (NEGATIVE); OCCULT BLOOD,URINE NEGATIVE (NEGATIVE); PROTEIN,URINE NEGATIVE (NEGATIVE)
[2023-01-02] MEDS ORDERED: Ketorolac 30 MG/ML SDV IVPUSH ONE (13:56)
[2023-01-02] MEDS: Piperacillin/Tazobactam 4.5 GM in Sodium Chloride 0.9% 100 ML IV SCH ×2 (15:48→22:05)
[2023-01-02] MEDS ORDERED: Morphine 2 MG/ML SYRINGE IVPUSH PRN (21:02)
[2023-01-02] MEDS ORDERED: Morphine 2 MG/ML SYRINGE IVPUSH ONE (21:30)
[2023-01-03] MEDS: Dextrose 5%-0.45% NaCl 1,000 ML IV SCH ×3 (00:14→17:34)
[2023-01-03] MEDS: Piperacillin/Tazobactam 4.5 GM in Sodium Chloride 0.9% 100 ML IV SCH ×4 (04:11→21:19)
[2023-01-03 05:55] LABS: HEMATOCRIT 31.9 % (37.0-47.0); HEMOGLOBIN 10.6 g/dL (12.0-16.0); MEAN CORPUSCULAR HEMOGLOBIN 29.9 pg (28.0-32.0); MEAN CORPUSCULAR HGB CONC 33.2 g/dL (32.0-36.0); MEAN CORPUSCULAR VOLUME 90.1 fL (83.0-99.0); MEAN PLATELET VOLUME 10.4 fL (9.4-12.3); PLATELET COUNT,PLT 247 K/uL (150-400); RED BLOOD CELL COUNT 3.54 M/uL (4.10-5.30); WHITE BLOOD CELL COUNT,WBC 4.73 K/uL (3.9-11.3)
[2023-01-03 06:26] LABS: A/G RATIO 0.9 (0.9-1.6); ALBUMIN 2.5 g/dL (3.4-5.0); BILIRUBIN TOTAL 1.5 mg/dL (0.2-1.0); CALCIUM 7.9 mg/dL (8.5-10.1); CARBON DIOXIDE,CO2 25.1 mmol/L (21.0-32.0); CREATININE 0.9 mg/dL (0.6-1.0); EST CRCL DRUG DOSING (CG) 53.71 mL/min; POTASSIUM,K 4.1 mmol/L (3.5-5.1); PROTEIN TOTAL,TP 5.3 g/dL (6.4-8.2)
[2023-01-03 07:29] LABS: BAND ABSOLUTE MAN 0.1; BAND PERCENT MAN 2 %; EOSINOPHILS ABSOLUTE MAN 0.1 (0.0-0.7); EOSINOPHILS PERCENT MAN 2 % (0.0-7.0); LYMPHOCYTES PERCENT MAN 43 % (16.0-40.0); MONOCYTES ABSOLUTE MAN 0.2 (0.0-0.8); MONOCYTES PERCENT MAN 5 % (0.0-15.0); SEG NEUTROPHILS ABSOLUTE MAN 2.3 (1.4-5.7); SEG NEUTROPHILS PERCENT MAN 48 % (48.0-80.0)
[2023-01-03] MEDS ORDERED: Dextrose 5%-0.45% NaCl 1,000 ML IV SCH (09:45)
[2023-01-03] MEDS: Pantoprazole 40 MG in Sodium Chloride 0.9% 10 ML IVPUSH SCH (09:47)
[2023-01-03] MEDS: Enoxaparin 40 MG/0.4 ML Syringe SUBCUT SCH (10:39)
[2023-01-03 13:22] LABS: TSH ULTRASENSITIVE 1.54 uIU/mL (0.36-3.74)
[2023-01-03] MEDS ORDERED: Acetaminophen 325 MG Tab PO PRN (15:42)
[2023-01-04] MEDS: Dextrose 5%-0.45% NaCl 1,000 ML IV SCH ×2 (01:33→08:55)
[2023-01-04] MEDS: Piperacillin/Tazobactam 4.5 GM in Sodium Chloride 0.9% 100 ML IV SCH ×2 (03:56→11:28)
[2023-01-04 07:41] LABS: A/G RATIO 0.9 (0.9-1.6); ALBUMIN 2.8 g/dL (3.4-5.0); BILIRUBIN TOTAL 0.8 mg/dL (0.2-1.0); CALCIUM 8.5 mg/dL (8.5-10.1); CARBON DIOXIDE,CO2 26.4 mmol/L (21.0-32.0); EST CRCL DRUG DOSING (CG) 48.34 mL/min; POTASSIUM,K 3.9 mmol/L (3.5-5.1)
[2023-01-04 07:59] LABS: HEMATOCRIT 34.8 % (37.0-47.0); HEMOGLOBIN 11.5 g/dL (12.0-16.0); MEAN CORPUSCULAR HEMOGLOBIN 29.9 pg (28.0-32.0); MEAN CORPUSCULAR VOLUME 90.6 fL (83.0-99.0); RED BLOOD CELL COUNT 3.84 M/uL (4.10-5.30)
[2023-01-04 08:00] LABS: BASOPHILS ABSOLUTE AUTO 0.06 K/uL (0.00-0.20); BASOPHILS PERCENT AUTO 1.2 % (0.0-1.0); EOSINOPHILS ABSOLUTE AUTO 0.14 K/uL (0.00-0.45); EOSINOPHILS PERCENT AUTO 2.7 % (0.0-6.0); IMMATURE GRAN ABSOLUTE AUTO 0.04 K/uL (0.00-0.05); IMMATURE GRAN PERCENT AUTO 0.8 % (0.0-0.4); LYMPHOCYTES ABSOLUTE AUTO 1.85 K/uL (1.00-4.80); LYMPHOCYTES PERCENT AUTO 36.3 % (24.0-44.0); MEAN PLATELET VOLUME 10.7 fL (9.4-12.3); MONOCYTES ABSOLUTE AUTO 0.37 K/uL (0.00-0.80); MONOCYTES PERCENT AUTO 7.3 % (0.0-8.0); NEUTROPHILS ABSOLUTE AUTO 2.64 K/uL (1.80-7.70); NEUTROPHILS PERCENT AUTO 51.7 % (41.0-71.0); PLATELET COUNT,PLT 295 K/uL (150-400)
[2023-01-04] MEDS: Pantoprazole 40 MG in Sodium Chloride 0.9% 10 ML IVPUSH SCH (10:44)
[2023-01-04] MEDS: Enoxaparin 40 MG/0.4 ML Syringe SUBCUT SCH (10:45)
[2023-01-04] MEDS ORDERED: Sodium Chloride 0.9% 100 ML ONE (11:21)
[2023-01-04 12:21] VITALS: BP 132/70; PULSE 65
== END 2023-01-04 13:54 | disposition home or self-care (01) | DRG 244 ==
LOC: MW.ED 07:23 → MW.MS 10:01 → OBSVTOIN 10:01 → MW.MS 01-03 10:29
PROVIDERS: ADMIT Family Medicine; ATTEND Family Medicine
DX: K57.32 Diverticulitis of large intestine without perforation or abscess without bleeding (principal); K21.9 Gastro-esophageal reflux disease without esophagitis; N61.1 Abscess of the breast and nipple; I95.9 Hypotension, unspecified; F17.210 Nicotine dependence, cigarettes, uncomplicated; Z88.1 Allergy status to other antibiotic agents; Z88.4 Allergy status to anesthetic agent; Z90.49 Acquired absence of other specified parts of digestive tract; Z98.51 Tubal ligation status; Z98.890 Other specified postprocedural states; Z79.899 Other long term (current) drug therapy
CPT/HCPCS: 36415; 74177; 74177-26; 80053; 81003; 82947; 83605; 83690; 83735; 84443; 85025; 96361; 96365; 96366; 96372; 96375; 96376; 99284; 99285-25; A9270-GY; C9113; G0378; J1650; J1885; J2270; J2405; J2543; J3490; J7030; J7042; Q9967

== ENCOUNTER 2024-08-03 13:31 | Emergency (ER) | payer BC ==
[2024-08-03 14:37] LABS: APPEARANCE,URINE CLEAR; COLOR,URINE YELLOW; GLUCOSE,URINE NEGATIVE (NEGATIVE); KETONES,URINE 40 mg/dL (NEGATIVE); LEUKOCYTE ESTERASE,URINE NEGATIVE (NEGATIVE); NITRITE,URINE NEGATIVE (NEGATIVE); OCCULT BLOOD,URINE NEGATIVE (NEGATIVE); PROTEIN,URINE NEGATIVE (NEGATIVE)
[2024-08-03 14:40] LABS: BILIRUBIN,URINE SMALL (NEGATIVE)
[2024-08-03] MEDS: Iopamidol 755 MG/ML 500 ML Multipack Bottle IVPUSH STA (14:41)
[2024-08-03] MEDS: HYDROmorphone 0.5 MG/0.5 ML Syringe IVPUSH ONE (14:46)
[2024-08-03] MEDS: Pantoprazole 80 MG in Sodium Chloride 0.9% 10 ML IVPUSH ONE (14:46)
[2024-08-03] MEDS: Ondansetron 4 MG/2 ML SDV IVPUSH ONE (14:47)
[2024-08-03 14:51] LABS: BASOPHILS ABSOLUTE AUTO 0.08 K/uL (0.00-0.20); BASOPHILS PERCENT AUTO 0.8 % (0.0-1.0); EOSINOPHILS ABSOLUTE AUTO 0.11 K/uL (0.00-0.45); EOSINOPHILS PERCENT AUTO 1.1 % (0.0-6.0); HEMATOCRIT 42.8 % (37.0-47.0); HEMOGLOBIN 14.4 g/dL (12.0-16.0); IMMATURE GRAN ABSOLUTE AUTO 0.03 K/uL (0.00-0.05); IMMATURE GRAN PERCENT AUTO 0.3 % (0.0-0.4); LYMPHOCYTES PERCENT AUTO 15.5 % (24.0-44.0); MEAN CORPUSCULAR HGB CONC 33.6 g/dL (32.0-36.0); MEAN CORPUSCULAR VOLUME 89.2 fL (83.0-99.0); MEAN PLATELET VOLUME 9.9 fL (9.4-12.3); MONOCYTES ABSOLUTE AUTO 0.52 K/uL (0.00-0.80); NEUTROPHILS PERCENT AUTO 77.3 % (41.0-71.0); PLATELET COUNT,PLT 384 K/uL (150-400); WHITE BLOOD CELL COUNT,WBC 10.34 K/uL (3.9-11.3)
[2024-08-03 15:15] LABS: A/G RATIO 1.5 (0.9-1.6); ALBUMIN 4.1 g/dL (3.4-5.0); BILIRUBIN TOTAL 0.6 mg/dL (0.2-1.0); CALCIUM 8.9 mg/dL (8.5-10.1); CARBON DIOXIDE,CO2 27.5 mmol/L (21.0-32.0); CREATININE 0.9 mg/dL (0.6-1.0); EST CRCL DRUG DOSING (CG) 53.12 mL/min; POTASSIUM,K 4.4 mmol/L (3.5-5.1); PROTEIN TOTAL,TP 6.9 g/dL (6.4-8.2)
[2024-08-03 15:33] LABS: HEMATOCRIT 42.4 % (37.0-47.0); HEMOGLOBIN 14.3 g/dL (12.0-16.0)
[2024-08-03] MEDS: Sodium Chloride 0.9% 1,000 ML IV ONE ×2 (15:43→16:09)
[2024-08-03 20:14] VITALS: BP 111/72; PULSE 69
== END 2024-08-03 17:43 | disposition home or self-care (01) ==
LOC: MW.ED 13:31
DX: K52.9 Noninfective gastroenteritis and colitis, unspecified (principal); K62.5 Hemorrhage of anus and rectum; E86.0 Dehydration; Z90.49 Acquired absence of other specified parts of digestive tract; Z79.899 Other long term (current) drug therapy; Z88.8 Allergy status to other drugs, medicaments and biological substances; Z88.1 Allergy status to other antibiotic agents
CPT/HCPCS: 36415; 74177; 80053; 81003; 81025; 83605; 83690; 85014; 85018; 85025; 85610; 85652; 86140; 96361; 96374; 96375; 99284; J2405; J2470; J7030; Q9967; 99283